=== PATIENT | female | born 1995 | race Caucasian/White ===

== ENCOUNTER 2018-03-24 03:46 | Emergency (ER) | payer OTHER ==
[2018-03-24 03:55] VITALS: TEMP 97.9
--- NOTE | 2018-03-24 05:08 | ED ---
Abdominal Pain HPI - General Chief Complaint: Abdominal Pain Stated Complaint: FLANK PAIN Time Seen by Provider: 03/24/18 04:25 Source: patient, EMS Mode of arrival: EMS - History of Present Illness Initial Comments: This patient is 23-year-old woman, stating that she is . She is here as transfer from [facility]. The patient had gone there for days ago for right flank pain. She states that she was told she had urinary tract infection, started on antibiotic and sent home. The pain did not resolve she had gone back to the hospital there tonight. When she was seen was felt that she needed to have ultrasound of the renal system. Patient is denying nausea or vomiting. No constipation or change in bowel movements. She has not noted a change in urine. No vaginal discharge or bleeding. MD Complaint: flank pain Onset/Timin -: days(s) Location: R flank Radiation: none Severity: moderate Quality: aching Consistency: constant Improves With: nothing Worsens With: other (Palpation) Treatments Prior to Arrival: other (Anabiotic) - Related Data Patient : Yes Number of weeks : 18 Home Medications Medication Instructions Recorded Confirmed Pnv,Calcium 72/Iron/Folic Acid 1 tab PO DAILY 03/01/15 03/24/18 [ Plus Tablet] Nitrofurantoin Monohyd/M-Cryst 100 mg PO Q12HR 03/24/18 03/24/18 [Macrobid] Allergies Allergy/AdvReac Type Severity Reaction Status Date / Time sulfamethoxazole Allergy Rash/Hives Verified 03/24/18 07:47 [From Bactrim] trimethoprim [From Bactrim] Allergy Rash/Hives Verified 03/24/18 07:47 amoxicillin AdvReac Rash/Hives Verified 03/24/18 07:47 bupropion [From Wellbutrin] AdvReac VIOLENT Verified 03/24/18 07:47 cephalexin [From Keflex] AdvReac Rash/Hives Verified 03/24/18 07:47 latex AdvReac Unknown Verified 03/24/18 07:47 Review of Systems ROS Statement: Those systems with pertinent positive or pertinent negative responses have been documented in the HPI. ROS Other: All systems not noted in ROS Statement are negative. Constitutional: Denies: fever, chills Respiratory: Denies: cough, dyspnea Cardiovascular: Denies: chest pain, palpitations, edema, syncope Gastrointestinal: Denies: abdominal pain, nausea, vomiting, diarrhea, constipation, melena, hematochezia Genitourinary: Denies: dysuria, hematuria, abnormal menses Musculoskeletal: Reports: as per HPI, back pain Skin: Denies: rash Neurological: Denies: headache, weakness, numbness Past Medical History Past Medical History: Cancer, Seizure Disorder Additional Past Medical History / Comment(s): States hx back pain. Hx ALL ( Acute Lymphoblastic Leukemia at 4yrs of age) History of Any Multi-Drug Resistant Organisms: None Reported Additional Past Surgical History / Comment(s): Port-a-cath insertion for chemo Past Anesthesia/Blood Transfusion Reactions: No Reported Reaction Past Psychological History: Anxiety, Depression Smoking Status: Never smoker Past Alcohol Use History: None Reported Past Drug Use History: None Reported - Past Family History Mother Family Medical History: Cancer General Exam General appearance: alert, in no apparent distress Head exam: Present: atraumatic, normocephalic Eye exam: Present: normal appearance. Absent: scleral icterus, conjunctival injection ENT exam: Present: normal oropharynx Respiratory exam: Present: normal lung sounds bilaterally. Absent: respiratory distress, wheezes, rales, rhonchi, stridor Cardiovascular Exam: Present: regular rate, normal rhythm, normal heart sounds. Absent: systolic murmur, diastolic murmur, rubs, gallop GI/Abdominal exam: Present: soft. Absent: distended, tenderness, guarding, rebound, mass Extremities exam: Present: normal inspection, normal capillary refill. Absent: pedal edema, calf tenderness Back exam: Present: normal inspection, tenderness, paraspinal tenderness. Absent: CVA tenderness (R), CVA tenderness (L), vertebral tenderness Neurological exam: Present: alert Skin exam: Present: warm, dry, intact, normal color. Absent: rash Course Vital Signs 03/24/18 03/24/18 03/24/18 03:48 05:00 06:00 Temperature 97.9 F Pulse Rate 59 L 65 68 Respiratory 19 16 16 Rate Blood Pressure 109/63 101/57 98/55 O2 Sat by Pulse 100 98 99 Oximetry Medical Decision Making - Lab Data Result diagrams: 03/24/18 07:12 03/24/18 07:12 Lab Results 03/24/18 03/24/18 Range/Units 07:12 07:12 WBC 9.3 (3.8-10.6) k/uL RBC 4.21 (3.80-5.40) m/uL Hgb 12.5 (11.4-16.0) gm/dL Hct 36.6 (34.0-46.0) % MCV 86.9 (80.0-100.0) fL MCH 29.6 (25.0-35.0) pg MCHC 34.1 (31.0-37.0) g/dL RDW 13.9 (11.5-15.5) % Plt Count 206 (150-450) k/uL Neutrophils % 62 % Lymphocytes % 27 % Monocytes % 5 % Eosinophils % 3 % Basophils % 0 % Neutrophils # 5.8 (1.3-7.7) k/uL Lymphocytes # 2.6 (1.0-4.8) k/uL Monocytes # 0.5 (0-1.0) k/uL Eosinophils # 0.2 (0-0.7) k/uL Basophils # 0.0 (0-0.2) k/uL Sodium 138 (137-145) mmol/L Potassium 3.5 (3.5-5.1) mmol/L Chloride 111 H (98-107) mmol/L Carbon Dioxide 21 L (22-30) mmol/L Anion Gap 6 mmol/L BUN 4 L (7-17) mg/dL Creatinine 0.48 L (0.52-1.04) mg/dL Est GFR (CKD-EPI)AfAm >90 (>60 ml/min/1.73 sqM) Est GFR (CKD-EPI)NonAf >90 (>60 ml/min/1.73 sqM) Glucose 79 (74-99) mg/dL Calcium 8.8 (8.4-10.2) mg/dL Disposition Clinical Impression: Renal colic on right side, Hydronephrosis Disposition: HOME SELF-CARE Condition: Fair Instructions: Renal Colic (ED) Is patient prescribed a controlled substance at d/c from ED?: No Referrals: Dar Borrero MD [STAFF PHYSICIAN] - 1-2 days
--- NOTE | 2018-03-24 05:43 | US ---
EXAMINATION TYPE: US kidneys/renal and bladder DATE OF EXAM: 03/24/2018 COMPARISON: NONE CLINICAL HISTORY: Pain. Right flank pain. Exam limitations due to body habitus and rib shadowing. EXAM MEASUREMENTS: Right Kidney: 12.0 x 3.5 x 4.0 cm Left Kidney: 12.2 x 4.8 x 3.6 cm Right Kidney: Moderate amount of hydronephrosis seen no definite stones visualized. Left Kidney: No hydronephrosis or masses seen Bladder: wnl Bilateral Jets seen: No No nephrolithiasis is seen. No masses are identified. The urinary bladd er is anechoic. Moderate amount of hydronephrosis seen right kidney. IMPRESSION: Left kidney appears normal. Right kidney shows mild to moderate hydronephrosis. No ureteral jets were evident during the exam in the urinary bladder.
[2018-03-24 06:19] VITALS: PULSE 68; RESP 16
[2018-03-24] MEDS ORDERED: SODIUM CHLORIDE 0.9% 500 ML 500 ML IV STA (06:45)
[2018-03-24] MEDS ORDERED: MORPHINE SULFATE 4 MG/ML SYRINGE IV STA (06:45)
[2018-03-24 07:21] LABS: Basophils % (A) 0 %; Eosinophils # (A) 0.2 k/uL (0-0.7); Eosinophils % (A) 3 %; HCT 36.6 % (34.0-46.0); HGB 12.5 gm/dL (11.4-16.0); Lymphocytes # (A) 2.6 k/uL (1.0-4.8); Lymphocytes % (A) 27 %; MCH 29.6 pg (25.0-35.0); MCHC 34.1 g/dL (31.0-37.0); MCV 86.9 fL (80.0-100.0); Mean Platelet Volume 7.3; Monocytes # (A) 0.5 k/uL (0-1.0); Monocytes % (A) 5 %; Neutrophils # (A) 5.8 k/uL (1.3-7.7); Neutrophils % (A) 62 %; Platelet Count 206 k/uL (150-450); RBC 4.21 m/uL (3.80-5.40); RDW 13.9 % (11.5-15.5); WBC 9.3 k/uL (3.8-10.6)
[2018-03-24 07:34] LABS: Anion Gap 6 mmol/L; Blood Urea Nitrogen 4 mg/dL (7-17); Calcium 8.8 mg/dL (8.4-10.2); Carbon Dioxide 21 mmol/L (22-30); Chloride 111 mmol/L (98-107); Glucose 79 mg/dL (74-99); Potassium 3.5 mmol/L (3.5-5.1); Sodium 138 mmol/L (137-145)
[2018-03-24] MEDS ORDERED: ACETAMINOPHEN TAB 325 MG TAB PO STA (07:58)
[2018-03-24 08:12] VITALS: BP 103/60
== END 2018-03-24 08:30 | disposition home or self-care (01) ==
LOC: EC 03:46
DX: O26.832 Pregnancy related renal disease, second trimester (principal); N13.30 Unspecified hydronephrosis; N23 Unspecified renal colic; Z88.2 Allergy status to sulfonamides; Z88.0 Allergy status to penicillin; Z88.8 Allergy status to other drugs, medicaments and biological substances; Z88.1 Allergy status to other antibiotic agents; Z91.040 Latex allergy status; Z85.6 Personal history of leukemia; Z53.20 Procedure and treatment not carried out because of patient's decision for unspecified reasons; Z3A.18 18 weeks gestation of pregnancy
CPT/HCPCS: 36415; 76770; 80048; 85025; 96360; 99284

== ENCOUNTER 2021-11-21 01:13 | Emergency (ER) | payer OTHER ==
[2021-11-21] MEDS ORDERED: levETIRAcetam 500 MG TAB PO STA (01:22)
[2021-11-21 01:23] VITALS: BP 108/74; PULSE 64; RESP 18; TEMP 97.7
[2021-11-21 02:10] LABS: Basophils # (A) 0.1 k/uL (0-0.2); Basophils % (A) 1 %; Eosinophils # (A) 0.4 k/uL (0-0.7); Eosinophils % (A) 3 %; HCT 40.1 % (34.0-46.0); HGB 13.5 gm/dL (11.4-16.0); Lymphocytes % (A) 26 %; MCH 30.1 pg (25.0-35.0); MCHC 33.6 g/dL (31.0-37.0); MCV 89.4 fL (80.0-100.0); Monocytes # (A) 0.6 k/uL (0-1.0); Monocytes % (A) 6 %; Neutrophils % (A) 62 %; Platelet Count 212 k/uL (150-450); RBC 4.48 m/uL (3.80-5.40); RDW 12.3 % (11.5-15.5); WBC 11.2 k/uL (3.8-10.6)
[2021-11-21 02:25] LABS: ALT 14 U/L (4-34); AST 21 U/L (14-36); African American GFR (CKD) >90 (>60 ml/min/1.73 sqM); Albumin 4.1 g/dL (3.5-5.0); Alkaline Phosphatase 66 U/L (38-126); Anion Gap 8 mmol/L; Blood Urea Nitrogen 9 mg/dL (7-17); Calcium 8.7 mg/dL (8.4-10.2); Carbon Dioxide 19 mmol/L (22-30); Chloride 109 mmol/L (98-107); Glucose 96 mg/dL (74-99); Magnesium 1.9 mg/dL (1.6-2.3); Non-African American GFR(CKD) >90 (>60 ml/min/1.73 sqM); Potassium 3.8 mmol/L (3.5-5.1); Sodium 136 mmol/L (137-145); Total Bilirubin 0.3 mg/dL (0.2-1.3); Total Protein 6.8 g/dL (6.3-8.2)
[2021-11-21 03:06] LABS: Amphetamine Screen,Urine Not Detected (NotDetected); Barbiturate Screen,Urine Not Detected (NotDetected); Benzodiazepines Screen,Urine Not Detected (NotDetected); Cocaine Screen,Urine Not Detected (NotDetected); Methadone Screen, Urine Not Detected (NotDetected); Opiate Screen,Urine Not Detected (NotDetected); Oxycodone Screen, Urine Not Detected (NotDetected); Phencyclidine Screen,Urine Not Detected (NotDetected); Tricyclic Antidepressant,Urine Not Detected (NotDetected); Urn Cannabinoid Scrn Not Detected (NotDetected)
--- NOTE | 2021-11-21 04:16 | ED ---
Seizure HPI - General Chief Complaint: Seizure Stated Complaint: Seizure Time Seen by Provider: 11/21/21 01:15 Source: patient, EMS Mode of arrival: EMS Limitations: no limitations - History of Present Illness MD Complaint: seizure -: minutes(s) Description of Episode: loss of consciousness, tonic-clonic movement -: second(s) Witnessed: yes - by bystander Trauma: No Seizure History: known seizure disorder Place: home Associated Symptoms: denies other symptoms - Related Data Home Medications Medication Instructions Recorded Confirmed Pnv,Calcium 72/Iron/Folic Acid 1 tab PO DAILY 03/01/15 03/24/18 [ Plus Tablet] Nitrofurantoin Monohyd/M-Cryst 100 mg PO Q12HR 03/24/18 03/24/18 [Macrobid] Allergies Allergy/AdvReac Type Severity Reaction Status Date / Time sulfamethoxazole Allergy Rash/Hives Verified 03/24/18 07:47 [From Bactrim] trimethoprim [From Bactrim] Allergy Rash/Hives Verified 03/24/18 07:47 amoxicillin AdvReac Rash/Hives Verified 03/24/18 07:47 bupropion [From Wellbutrin] AdvReac VIOLENT Verified 03/24/18 07:47 cephalexin [From Keflex] AdvReac Rash/Hives Verified 03/24/18 07:47 latex AdvReac Unknown Verified 03/24/18 07:47 Review of Systems ROS Statement: Those systems with pertinent positive or pertinent negative responses have been documented in the HPI. ROS Other: All systems not noted in ROS Statement are negative. Constitutional: Denies: fever Respiratory: Denies: cough, dyspnea Cardiovascular: Denies: chest pain, palpitations Gastrointestinal: Denies: abdominal pain, vomiting Genitourinary: Denies: dysuria, hematuria Musculoskeletal: Denies: back pain Skin: Denies: rash Neurological: Denies: headache, weakness, numbness Past Medical History Past Medical History: Cancer, Seizure Disorder Additional Past Medical History / Comment(s): States hx back pain. Hx ALL (Acute Lymphoblastic Leukemia at 4yrs of age) History of Any Multi-Drug Resistant Organisms: None Reported Additional Past Surgical History / Comment(s): Port-a-cath insertion for chemo Past Anesthesia/Blood Transfusion Reactions: No Reported Reaction Past Psychological History: Anxiety, Depression Past Alcohol Use History: None Reported Past Drug Use History: None Reported - Past Family History Mother Family Medical History: Cancer General Exam Limitations: no limitations General appearance: alert, in no apparent distress Head exam: Present: atraumatic, normocephalic Eye exam: Present: normal appearance. Absent: scleral icterus, conjunctival injection Neck exam: Present: normal inspection Respiratory exam: Present: normal lung sounds bilaterally. Absent: respiratory distress, wheezes, rales, rhonchi, stridor Cardiovascular Exam: Present: regular rate, normal rhythm, normal heart sounds. Absent: systolic murmur, diastolic murmur, rubs, gallop GI/Abdominal exam: Present: soft. Absent: distended, tenderness, guarding, rebound, rigid, mass Extremities exam: Present: normal inspection, normal capillary refill. Absent: pedal edema, calf tenderness Back exam: Present: normal inspection. Absent: CVA tenderness (R), CVA ten derness (L) Neurological exam: Present: alert, oriented X3, CN II-XII intact. Absent: motor sensory deficit Skin exam: Present: warm, dry, intact, normal color. Absent: rash Course Vital Signs 11/21/21 01:17 Temperature 97.7 F Pulse Rate 64 Respiratory 18 Rate Blood Pressure 108/74 O2 Sat by Pulse 100 Oximetry Medical Decision Making - Medical Decision Making Patient is 26-year-old woman here after generalized tonic-clonic seizure. She had just seen her neurologist and they were going to increase her dose of Keppra. Patient has had some medical noncompliance. She is back at her baseline and would like to go home. Discussed following the medical regimen and she is given dose of Keppra here. - Lab Data Result diagrams: 11/21/21 01:51 11/21/21 01:51 Lab Results 11/21/21 11/21/21 11/21/21 Range/Units 01:51 01:51 02:03 WBC 11.2 H (3.8-10.6) k/uL RBC 4.48 (3.80-5.40) m/uL Hgb 13.5 (11.4-16.0) gm/dL Hct 40.1 (34.0-46.0) % MCV 89.4 (80.0-100.0) fL MCH 30.1 (25.0-35.0) pg MCHC 33.6 (31.0-37.0) g/dL RDW 12.3 (11.5-15.5) % Plt Count 212 (150-450) k/uL MPV 8.0 Neutrophils % 62 % Lymphocytes % 26 % Monocytes % 6 % Eosinophils % 3 % Basophils % 1 % Neutrophils # 7.0 (1.3-7.7) k/uL Lymphocytes # 3.0 (1.0-4.8) k/uL Monocytes # 0.6 (0-1.0) k/uL Eosinophils # 0.4 (0-0.7) k/uL Basophils # 0.1 (0-0.2) k/uL Sodium 136 L (137-145) mmol/L Potassium 3.8 (3.5-5.1) mmol/L Chloride 109 H (98-107) mmol/L Carbon Dioxide 19 L (22-30) mmol/L Anion Gap 8 mmol/L BUN 9 (7-17) mg/dL Creatinine 0.64 (0.52-1.04) mg/dL Est GFR (CKD-EPI)AfAm >90 (>60 ml/min/1.73 sqM) Est GFR (CKD-EPI)NonAf >90 (>60 ml/min/1.73 sqM) Glucose 96 (74-99) mg/dL Calcium 8.7 (8.4-10.2) mg/dL Magnesium 1.9 (1.6-2.3) mg/dL Total Bilirubin 0.3 (0.2-1.3) mg/dL AST 21 (14-36) U/L ALT 14 (4-34) U/L Alkaline Phosphatase 66 (38-126) U/L Total Protein 6.8 (6.3-8.2) g/dL Albumin 4.1 (3.5-5.0) g/dL Urine HCG, Qual (Not Detectd) Urine Opiates Screen Not Detected (NotDetected) Ur Oxycodone Screen Not Detected (NotDetected) Urine Methadone Screen Not Detected (NotDetected) Ur Propoxyphene Screen Not Detected (NotDetected) Ur Barbiturates Screen Not Detected (NotDetected) U Tricyclic Antidepress Not Detected (NotDetected) Ur Phencyclidine Scrn Not Detected (NotDetected) Ur Amphetamines Screen Not Detected (NotDetected) U Methamphetamines Scrn Not Detected (NotDetected) U Benzodiazepines Scrn Not Detected (NotDetected) Urine Cocaine Screen Not Detected (NotDetected) U Marijuana (THC) Screen Not Detected (NotDetected) 11/21/21 Range/Units 02:03 WBC (3.8-10.6) k/uL RBC (3.80-5.40) m/uL Hgb (11.4-16.0) gm/dL Hct (34.0-46.0) % MCV (80.0-100.0) fL MCH (25.0-35.0) pg MCHC (31.0-37.0) g/dL RDW (11.5-15.5) % Plt Count (150-450) k/uL MPV Neutrophils % % Lymphocytes % % Monocytes % % Eosinophils % % Basophils % % Neutrophils # (1.3-7.7) k/uL Lymphocytes # (1.0-4.8) k/uL Monocytes # (0-1.0) k/uL Eosinophils # (0-0.7) k/uL Basophils # (0-0.2) k/uL Sodium (137-145) mmol/L Potassium (3.5-5.1) mmol/L Chloride (98-107) mmol/L Carbon Dioxide (22-30) mmol/L Anion Gap mmol/L BUN (7-17) mg/dL Creatinine (0.52-1.04) mg/dL Est GFR (CKD-EPI)AfAm (>60 ml/min/1.73 sqM) Est GFR (CKD-EPI)NonAf (>60 ml/min/1.73 sqM) Glucose (74-99) mg/dL Calcium (8.4-10.2) mg/dL Magnesium (1.6-2.3) mg/dL Total Bilirubin (0.2-1.3) mg/dL AST (14-36) U/L ALT (4-34) U/L Alkaline Phosphatase (38-126) U/L Total Protein (6.3-8.2) g/dL Albumin (3.5-5.0) g/dL Urine HCG, Qual Not Detected (Not Detectd) Urine Opiates Screen (NotDetected) Ur Oxycodone Screen (NotDetected) Urine Methadone Screen (NotDetected) Ur Propoxyphene Screen (NotDetected) Ur Barbiturates Screen (NotDetected) U Tricyclic Antidepress (NotDetected) Ur Phencyclidine Scrn (NotDetected) Ur Amphetamines Screen (NotDetected) U Methamphetamines Scrn (NotDetected) U Benzodiazepines Scrn (NotDetected) Urine Cocaine Screen (NotDetected) U Marijuana (THC) Screen (NotDetected) Disposition Clinical Impression: Generalized seizure Disposition: HOME SELF-CARE Condition: Good Instructions (If sedation given, give patient instructions): Seizure/Epilepsy Discharge Instructions & Follow-Up Is patient prescribed a controlled substance at d/c from ED?: No Referrals: Carl Rivers MD [Primary Care Provider] - 1-2 days Zain Nava MD [STAFF PHYSICIAN] - 1-2 days
== END 2021-11-21 05:29 | disposition home or self-care (01) ==
LOC: EC 01:13
DX: R56.9 Unspecified convulsions (principal); Z88.2 Allergy status to sulfonamides; Z88.8 Allergy status to other drugs, medicaments and biological substances; Z88.0 Allergy status to penicillin
CPT/HCPCS: 36415; 80053; 80306; 81025; 83735; 85025; 93005; 99285

== ENCOUNTER 2021-12-03 21:07 | Inpatient (IN) | payer OTHER ==
[2021-12-03] MEDS ORDERED: NALOXONE 0.4 MG/ML 1 ML VIAL IV PRN (21:38)
[2021-12-03] MEDS ORDERED: ONDANSETRON 4 MG/2 ML VIAL IVP PRN (21:44)
[2021-12-03] MEDS ORDERED: SODIUM CHLORIDE 0.9% 1,000 ML IV STA ×2 (21:44)
--- NOTE | 2021-12-03 21:51 | ED ---
Seizure HPI - General Chief Complaint: Seizure Stated Complaint: seizures Time Seen by Provider: 12/03/21 21:21 Source: patient, EMS, RN notes reviewed, old records reviewed Mode of arrival: EMS Limitations: no limitations - History of Present Illness Initial Comments: This is a 26-year-old female to the emergency department for evaluation patient presents today for evaluation regards to recurrent seizure status epilepticus 14+ seizures today with history of greater than 100 seizures per day on Her with no resolution. Patient will be admitted for recurrent neurological evaluation MD Complaint: seizure, shaking -: minutes(s) Description of Episode: loss of consciousness, tonic-clonic movement, post-event confusion -: second(s) Witnessed: yes - by bystander Trauma: Yes Seizure History: known seizure disorder, compliant with medication Place: home Possible Precipitating Event: none Associated Symptoms: denies other symptoms Treatments Prior to Arrival: none - Related Data Home Medications Medication Instructions Recorded Confirmed QUEtiapine [SEROquel] 200 mg PO HS 12/03/21 12/03/21 levETIRAcetam [Keppra] 1,000 mg PO Q12HR 12/03/21 12/03/21 Allergies Allergy/AdvReac Type Severity Reaction Status Date / Time sulfamethoxazole Allergy Rash/Hives Verified 12/03/21 22:24 [From Bactrim] trimethoprim [From Bactrim] Allergy Rash/Hives Verified 12/03/21 22:24 amoxicillin AdvReac Rash/Hives Verified 12/03/21 22:24 bupropion [From Wellbutrin] AdvReac VIOLENT Verified 12/03/21 22:24 cephalexin [From Keflex] AdvReac Rash/Hives Verified 12/03/21 22:24 latex AdvReac Unknown Verified 12/03/21 22:24 Review of Systems ROS Statement: Those systems with pertinent positive or pertinent negative responses have been documented in the HPI. ROS Other: All systems not noted in ROS Statement are negative. Past Medical History Past Medical History: Cancer, Seizure Disorder Additional Past Medical History / Comment(s): States hx back pain. Hx ALL (Acute Lymphoblastic Leukemia at 4yrs of age) History of Any Multi-Drug Resistant Organisms: None Reported Past Surgical History: Section, Cholecystectomy, Tubal Ligation Additional Past Surgical History / Comment(s): Port-a-cath insertion for chemo Past Anesthesia/Blood Transfusion Reactions: No Reported Reaction Past Psychological History: Anxiety, Depression Smoking Status: Never smoker Past Alcohol Use History: None Reported Past Drug Use History: None Reported - Past Family History Mother Family Medical History: Cancer General Exam Limitations: no limitations General appearance: alert, in no apparent distress Head exam: Present: atraumatic, normocephalic, normal inspection Eye exam: Present: normal appearance, PERRL, EOMI. Absent: scleral icterus, conjunctival injection, periorbital swelling ENT exam: Present: normal exam, mucous membranes moist Neck exam: Present: normal inspection. Absent: tenderness, meningismus, lymphadenopathy Respiratory exam: Present: normal lung sounds bilaterally. Absent: respiratory distress, wheezes, rales, rhonchi, stridor Cardiovascular Exam: Present: regular rate, normal rhythm, normal heart sounds. Absent: systolic murmur, diastolic murmur, rubs, gallop, clicks GI/Abdominal exam: Present: soft, normal bowel sounds. Absent: distended, tenderness, guarding, rebound, rigid Extremities exam: Present: normal inspection, full ROM, normal capillary refill. Absent: tenderness, pedal edema, joint swelling, calf tenderness Back exam: Present: normal inspection Neurological exam: Present: alert, oriented X3, CN II-XII intact Psychiatric exam: Present: normal affect, normal mood Skin exam: Present: warm, dry, intact, normal color. Absent: rash Course Vital Signs 12/03/21 21:18 Temperature 98.4 F Pulse Rate 97 Respiratory 16 Rate Blood Pressure 105/65 O2 Sat by Pulse 97 Oximetry - Reevaluation(s) Reevaluation #1: 12/03/21 23:02 Medical record is reviewed Reevaluation #2: 12/03/21 23:02 Patient informed of results and questions answered Reevaluation #3: 12/03/21 23:02 A she has not had recurrent seizure here in the emergency department - Consultations Consultation #1: Spoke with [facility] who agree to admit this patient Medical Decision Making - Medical Decision Making 26 female with status epilepticus recent history of multiple seizures per day her story upper to 14 today. Patient be admitted for status epilepticus evaluation by neurology, recent history of multiple admissions for same - Lab Data Result diagrams: 12/03/21 22:40 - EKG Data -: EKG Interpreted by Me (EKG sinus rhythm 81 VA 144 QRS 82 QTC 397) Disposition Clinical Impression: Generalized seizure, Intractable seizure disorder, Status epilepticus Disposition: ADMITTED IP TO THIS HOSP Condition: Fair Is patient prescribed a controlled substance at d/c from ED?: No
[2021-12-03] MEDS ORDERED: levETIRAcetam IV 1,000 MG in SALINE 1 100ML.BAG IVPB ONE (22:00)
[2021-12-03 22:50] LABS: Basophils # (A) 0.1 k/uL (0-0.2); Basophils % (A) 2 %; Eosinophils # (A) 0.6 k/uL (0-0.7); Eosinophils % (A) 6 %; HCT 42.7 % (34.0-46.0); HGB 14.8 gm/dL (11.4-16.0); Lymphocytes # (A) 2.6 k/uL (1.0-4.8); Lymphocytes % (A) 26 %; MCH 30.9 pg (25.0-35.0); MCHC 34.7 g/dL (31.0-37.0); MCV 89.1 fL (80.0-100.0); Mean Platelet Volume 7.6; Monocytes # (A) 0.7 k/uL (0-1.0); Monocytes % (A) 7 %; Neutrophils # (A) 5.9 k/uL (1.3-7.7); Neutrophils % (A) 59 %; Platelet Count 233 k/uL (150-450); RBC 4.79 m/uL (3.80-5.40); RDW 12.2 % (11.5-15.5); WBC 9.9 k/uL (3.8-10.6)
[2021-12-03 22:59] LABS: ALT 29 U/L (4-34); AST 35 U/L (14-36); Acetaminophen <10.0 ug/mL; African American GFR (CKD) >90 (>60 ml/min/1.73 sqM); Albumin 4.3 g/dL (3.5-5.0); Alcohol <10 mg/dL; Alkaline Phosphatase 55 U/L (38-126); Anion Gap 4 mmol/L; Blood Urea Nitrogen 11 mg/dL (7-17); Calcium 9.1 mg/dL (8.4-10.2); Carbon Dioxide 29 mmol/L (22-30); Chloride 105 mmol/L (98-107); Glucose 106 mg/dL (74-99); Magnesium 1.9 mg/dL (1.6-2.3); Non-African American GFR(CKD) >90 (>60 ml/min/1.73 sqM); Potassium 4.4 mmol/L (3.5-5.1); Salicylate <1.0 mg/dL; Sodium 138 mmol/L (137-145); Total Bilirubin 0.3 mg/dL (0.2-1.3); Total Protein 7.3 g/dL (6.3-8.2)
[2021-12-03 23:09] LABS: Amphetamine Screen,Urine Not Detected (NotDetected); Barbiturate Screen,Urine Not Detected (NotDetected); Benzodiazepines Screen,Urine Detected (NotDetected); Cocaine Screen,Urine Not Detected (NotDetected); Methadone Screen, Urine Not Detected (NotDetected); Opiate Screen,Urine Not Detected (NotDetected); Oxycodone Screen, Urine Not Detected (NotDetected); Phencyclidine Screen,Urine Not Detected (NotDetected); Tricyclic Antidepressant,Urine Not Detected (NotDetected); Urn Cannabinoid Scrn Not Detected (NotDetected)
[2021-12-04] MEDS: SODIUM CHLORIDE 0.9% 1,000 ML IV SCH ×4 (00:10→21:04)
[2021-12-04] MEDS ORDERED: QUEtiapine 200 MG TAB PO ONE (03:00)
[2021-12-04 07:11] LABS: Basophils # (A) 0.1 k/uL (0-0.2); Basophils % (A) 2 %; Eosinophils # (A) 0.5 k/uL (0-0.7); Eosinophils % (A) 6 %; HCT 41.5 % (34.0-46.0); HGB 13.8 gm/dL (11.4-16.0); Lymphocytes % (A) 36 %; MCH 29.8 pg (25.0-35.0); MCHC 33.3 g/dL (31.0-37.0); MCV 89.5 fL (80.0-100.0); Mean Platelet Volume 7.9; Monocytes # (A) 0.5 k/uL (0-1.0); Monocytes % (A) 6 %; Neutrophils # (A) 4.1 k/uL (1.3-7.7); Neutrophils % (A) 48 %; Platelet Count 197 k/uL (150-450); RBC 4.64 m/uL (3.80-5.40); RDW 12.3 % (11.5-15.5); WBC 8.4 k/uL (3.8-10.6)
[2021-12-04 07:32] LABS: Carbon Dioxide 26 mmol/L (22-30)
[2021-12-04 07:33] LABS: African American GFR (CKD) >90 (>60 ml/min/1.73 sqM); Anion Gap 6 mmol/L; Blood Urea Nitrogen 9 mg/dL (7-17); Calcium 8.5 mg/dL (8.4-10.2); Chloride 107 mmol/L (98-107); Glucose 88 mg/dL (74-99); Non-African American GFR(CKD) >90 (>60 ml/min/1.73 sqM); Potassium 4.2 mmol/L (3.5-5.1); Sodium 139 mmol/L (137-145)
[2021-12-04] MEDS ORDERED: PANTOPRAZOLE 40 MG/10 ML VIAL IV SCH (09:00)
--- NOTE | 2021-12-04 09:16 | P.CNNES ---
History of Present Illness Consult date: 12/04/21 Requesting physician: Raghu Lyn Reason for Consult: seizure History of Present Illness: This is a 26-year-old woman with history of seizures who presented to our facility because of recurrent seizures. Patient stated that the she has been having seizures for the last 1 year but continues to have recurrent seizures and they're becoming more frequent. She stated she is to have it at a seizure once every couple weeks now she is having frequent seizure once every day or every other day and she notified the ED and she had 14 seizures yesterday and had greater than 100 seizures per day. She stated that she is on Keppra at thousand milligrams every 12 hours and she's been compliant taking her medication. She does not recall her episodes. She does not have any auras. She denies any urinary or bowel incontinence. Sometimes she has a tongue bite and she feels as she bites the side of the cheek. Patient was just recently discharged from [facility] but can do to have seizure so she wanted to be addressed. She denies of ALCOHOL use, tobacco use or any illicit drug use. She notified me that she's going under stress. She denies of any suicidal or homicidal thoughts or plans. She tried Depakote and Dilantin in the past but had side effects of Depakote and Dilantin was not not effective. She is following up with Dr. Dominique's PA. Patient stated that she had MRI of the brai n and was told was unremarkable by her neurology team. She also had a 3 hour EEG and was told was normal. She stated that she is in the process of possibly pursuing VNG. Some of the workup in our facility during this hospital visit consisted of: Patient labs were reviewed and they seemed unremarkable. Her urine drug screen the benzoyl is positive otherwise rest is not detected. The serum alcohol was less than 10. Acetaminophen is less than 10 T is less than 1.0. According to the nurse she had a recent CT of the head at the outside hospital. Review of Systems Review of system: The 12 point system was reviewed and apparent positive and negative per HPI. Past Medical History Past Medical History: Cancer, Seizure Disorder Additional Past Medical History / Comment(s): States hx back pain. Hx ALL (Acute Lymphoblastic Leukemia at 4yrs of age) History of Any Multi-Drug Resistant Organisms: None Reported Past Surgical History: Section, Cholecystectomy, Tubal Ligation Additional Past Surgical History / Comment(s): Port-a-cath insertion for chemo Past Anesthesia/Blood Transfusion Reactions: No Reported Reaction Past Psychological History: Anxiety, Depression Smoking Status: Never smoker Past Alcohol Use History: None Reported Past Drug Use History: None Reported - Past Family History Mother Family Medical History: Cancer Medications and Allergies Home Medications Medication Instructions Recorded Confirmed Type QUEtiapine [SEROquel] 200 mg PO HS 12/03/21 12/03/21 History levETIRAcetam [Keppra] 1,000 mg PO Q12HR 12/03/21 12/03/21 History Allergies Allergy/AdvReac Type Severity Reaction Status Date / Time sulfamethoxazole Allergy Rash/Hives Verified 12/03/21 22:24 [From Bactrim] trimethoprim [From Bactrim] Allergy Rash/Hives Verified 12/03/21 22:24 amoxicillin AdvReac Rash/Hives Verified 12/03/21 22:24 bupropion [From Wellbutrin] AdvReac VIOLENT Verified 12/03/21 22:24 cephalexin [From Keflex] AdvReac Rash/Hives Verified 12/03/21 22:24 latex AdvReac Unknown Verified 12/03/21 22:24 Physical Examination - Vital Signs Vital Signs: Vital Signs Temp Pulse Pulse Resp BP BP Pulse Ox 12/04/21 05:44 97.7 F 78 15 92/59 98 12/04/21 02:19 97.8 F 78 16 106/72 98 12/03/21 23:00 61 181 H 97/61 98 12/03/21 22:45 98.0 F 68 16 123/82 100 12/03/21 21:18 98.4 F 97 16 105/65 97 Intake and Output 12/03/21 12/04/21 12/04/21 22:59 06:59 14:59 Intake Total 1080 118 Balance 1080 118 Intake: Oral 1080 118 Other: Weight 80.739 kg GENERAL: The patient is lying in bed and is not in acute distress. CHEST: The heart rate is regular rate rhythm. No murmurs to auscultation. LUNG: Clear to auscultation bilaterally no wheezing noted throughout. Not labored breathing. ABDOMEN/GI: Bowel sounds present in all 4 quadrants. No tenderness to palpation throughout. NEUROLOGICAL: Higher mental function: The patient is awake, alert, oriented to self, place and time. Patient is following commands. No aphasia and no neglect. Cranial nerves: The pupils are round, equal and reactive to light and accom modation. Visual jackson are full to confrontation throughout. Extraocular movement is intact no nystagmus is noted. Facial sensation is normal to touch throughout. The facial strength is normal throughout. Hearing is normal bilaterally to hand rub. Tongue is midline and moved [id number] without any difficulty. No dysarthria is noted. Shoulder shrug is normal bilaterally. Motor: The strength is 5 over 5 throughout. Normal tone and bulk. Cerebellum: Normal finger to nose bilaterally. Sensation: Sensation is normal to touch throughout. Reflexes (right/left): 2+ throughout. Plantars are downgoing bilaterally. Results - Laboratory Findings CBC and BMP: 12/04/21 06:44 12/04/21 06:44 Abnormal Lab Findings: Abnormal Labs 12/03/21 12/03/21 22:40 22:40 Glucose 106 H U Benzodiazepines Scrn Detected H Assessment and Plan Assessment: Seizure-like activity and is reporting at least 14 seizure in the day yesterday. Patient is not in status epilepticus and her labs were unremarkable which patient with numerous seizure, you would expect some reactive labs. I feel the patient's seizure-like episodes seem more pseudoseizures. Cannot exclude true epileptic in nature. Seizure-like activity for last 1 year. She had MRI and had a 3 hour EEG by her outpatient neurologist was told was normal Plan: I ordered a CT of the head. I ordered a routine EEG. Continue her home dose of Keppra 1 g twice a day. I started her on Vimpat 50mg bid in case there is are true epileptic in nature. Consulted psychiatry team but spoke with them and they stated outpatient psychiatry management. Therefore cancelled consult. If that CT of the head and the routine EEG are normal then patient is cleared for discharge. I highly recommend an epilepsy monitoring unit as an outpatient to capture these episodes. Patient was notified because of her seizure-like activities to avoid driving for 6 month, avoid heights, avoid using heavy machinery and avoid swimming unassisted. Recommend epilepsy monitoring unit as outpatient to capture these episodes and detect whether all her episodes are epileptic in nature vs nonepileptiic vs combination of both. Patient to follow-up with her neurologist (Dr. Dominique's team) within 1-2 weeks. Plan discussed with the patient's nurse and primary team. Thank you for the consultation. I was updated by the nurse, that patient had further events and they seems more psychogenic. She is having low blood pressure. I loaded the patient with Vimpat 100mg daily. Zain Nava M.D. Neuro-hospitalist Time with Patient: Greater than 30
[2021-12-04] MEDS ORDERED: levETIRAcetam IV 1,000 MG in SALINE 1 100ML.BAG IVPB SCH (10:00)
--- NOTE | 2021-12-04 10:17 | CT ---
EXAMINATION TYPE: CT brain wo con DATE OF EXAM: 12/04/2021 COMPARISON: None HISTORY: 26-year-old female seizure TECHNIQUE: Examination was done in axial plane without intravenous contrast. Coronal and sagittal r econstructions performed. CT DLP: 1090.4 mGycm Automated exposure control for dose reduction was used. FINDINGS: There is no evidence of acute intracranial hemorrhage, acute ischemic changes, mass, mass-effect, or extra-axial fluid collection. There is no effacement of cerebral sulci or basal subarachnoid cister ns. There is no hydrocephalus. There is no midline shift. Foley-white matter distinction is preserv ed. Slightly smaller size to the right lateral ventricle likely congenital variation Scattered mild mucosal thickening ethmoid air cells and maxillary sinuses. There is a 1.8 cm polyp or mucosal retention cyst posteriorly in the left maxillary sinus. Mastoid air cells well pneumatized. Orbits and globes are intact. Leftward nasal septal deviation. IMPRESSION: No acute intracranial abnormality seen. Mild chronic maxillary and ethmoid sinus disease.
--- NOTE | 2021-12-04 15:28 | EEG ---
ELECTROENCEPHALOGRAM REPORT DATE OF SERVICE: 12/03/2021. CLINICAL HISTORY: This is a 26-year-old woman with history of seizure who reports that she continues to have seizure-like activity. The video EEG is obtained to evaluate for seizure epileptiform activity. RELEVANT MEDICATION: Keppra. EEG TYPE: A routine 21 channel EEG is performed with video using the 10/20 electrode placement system. DESCRIPTION: Wakefulness and drowsiness are obtained. During awake state, the posterior- dominant rhythm consists of low to moderate voltage of 9 hertz activity. There is no physiological stage 2 sleep architecture. There is no focal slowing. Interictal and ictal is none. ACTIVATION PROCEDURE: Photic stimulation did not evoke a posterior driving response. There is no abnormality during the photic stimulation. Hyperventilation is not performed. CLINICAL INTERPRETATION: This is a normal routine EEG. There is no focal slowing, epileptiform discharge or seizure on the EEG. Clinical correlation is recommended. SAV / TATIANA: [id number] / MTDD
--- NOTE | 2021-12-04 17:15 | P.HPIM ---
History of Present Illness H&P Date: 12/04/21 Chief Complaint: Recurrent seizures This is a 26-year-old patient, follows with Dr. Rivers. Patient first had a seizure when she was . Subsequently she's had recurrent seizures. Patient follows with neurology spine locally in town with Dr. Aquino team. On Keppra thousand milligrams twice a day. In the process of getting vagal nerve stimulator. Patient is brought to the ER following recurrent seizures at least about over 10. Described as tonic-clonic. When I saw the patient this morning patient lethargic but able to answer questions. No fever no chills. Neurology was consulted. Neuro checks. Patient has been taking her medications. Review of systems: GEN.: Tired EYES: None HEENT: None NECK: None RESPIRATORY: None CARDIOVASCULAR: None GASTROINTESTINAL: None GENITOURINARY: None MUSCULOSKELETAL: None LYMPHATICS: None HEMATOLOGICAL: None PSYCHIATRY: None NEUROLOGICAL: As above Past medical history to include: Seizure disorder, acute lymphoblastic leukemia at age of 4 years. Anxiety depression. Social history: Not employed. Lives with her uncle and aunt. No alcohol no smoking or recreational drugs. Family history: Cancer Physical examination: VITAL SIGNS: 98.4, 97, 16, 105/65, 97% room air GENERAL: BMI 30.6, laying in bed, lethargic but able to answer questions. EYES: Pupils equal. Conjunctiva normal. HEENT: External appearance of nose and ears normal, oral cavity grossly normal. NECK: JVD not raised; masses not palpable. HEART: First and second heart sounds are normal; no edema. LUNGS: Respiratory rate normal; clear to auscultation. ABDOMEN: Soft, nontender, liver spleen not palpable, no masses palpable. PSYCH: [Tired and lethargic but able to answer questions l. MUSCULOSKELETAL:No Clubbing/cyanosis;muscles-grossly intact NEUROLOGICAL: Cranial nerves grossly intact; no facial asymmetry, power and sensation grossly intact. LYMPHATICS: No lymph nodes palpable in the axilla and neck INVESTIGATIONS, reviewed in the clinical context: White count 8.4 hemoglobin 13.8 platelets 197 potassium 4.2 creatinine 0.66 Urine drug screen positive for: Benzodiazepines EKG tracing personally reviewed by me: Normal sinus rhythm Computed tomography scan of the brain: Unremarkable Assessment and plan: -Recurrent seizures. Patient does follow with neurology spine locally in town. Awaiting vagal nerve stimulator. Neuro checks. EEG. Neurology consulted. -Obesity BMI 30.6 Weight loss measures -Depression, anxiety Seroquel 200 mg daily at bedtime Neuro Checks. EEG. Neurology consultation.. Continue home medications. Patient's currently postictal. But improving. Past Medical History Past Medical History: Cancer, Seizure Disorder Additional Past Medical History / Comment(s): States hx back pain. Hx ALL (Acute Lymphoblastic Leukemia at 4yrs of age) History of Any Multi-Drug Resistant Organisms: None Reported Past Surgical History: Section, Cholecystectomy, Tubal Ligation Additional Past Surgical History / Comment(s): Port-a-cath insertion for chemo Past Anesthesia/Blood Transfusion Reactions: No Reported Reaction Past Psychological History: Anxiety, Depression Smoking Status: Never smoker Past Alcohol Use History: None Reported Past Drug Use History: None Reported - Past Family History Mother Family Medical History: Cancer Medications and Allergies Home Medications Medication Instructions Recorded Confirmed Type QUEtiapine [SEROquel] 200 mg PO HS 12/03/21 12/03/21 History levETIRAcetam [Keppra] 1,000 mg PO Q12HR 12/03/21 12/03/21 History Allergies Allergy/AdvReac Type Severity Reaction Status Date / Time sulfamethoxazole Allergy Rash/Hives Verified 12/03/21 22:24 [From Bactrim] trimethoprim [From Bactrim] Allergy Rash/Hives Verified 12/03/21 22:24 amoxicillin AdvReac Rash/Hives Verified 12/03/21 22:24 bupropion [From Wellbutrin] AdvReac VIOLENT Verified 12/03/21 22:24 cephalexin [From Keflex] AdvReac Rash/Hives Verified 12/03/21 22:24 latex AdvReac Unknown Verified 12/03/21 22:24 Physical Exam Vitals: Vital Signs Temp Pulse Pulse Resp BP BP Pulse Ox 12/04/21 05:44 97.7 F 78 15 92/59 98 12/04/21 02:19 97.8 F 78 16 106/72 98 12/03/21 23:00 61 181 H 97/61 98 12/03/21 22:45 98.0 F 68 16 123/82 100 12/03/21 21:18 98.4 F 97 16 105/65 97 Intake and Output 12/03/21 12/04/21 12/04/21 22:59 06:59 14:59 Intake Total 1080 118 Balance 1080 118 Intake: Oral 1080 118 Other: Weight 80.739 kg Results CBC & Chem 7: 12/04/21 06:44 12/04/21 06:44 Labs: Abnormal Lab Results - Last 24 Hours (Table) 12/03/21 12/03/21 Range/Units 22:40 22:40 Glucose 106 H (74-99) mg/dL U Benzodiazepines Scrn Detected H (NotDetected) Thrombosis Risk Factor Assmnt - Choose All That Apply Any of the Below Risk Factors Present?: No
[2021-12-04] MEDS ORDERED: LACOSAMIDE IV 100 MG in SODIUM CHLORIDE 0.9% 50 ML IVPB STA (17:56)
[2021-12-04] MEDS ORDERED: QUEtiapine 200 MG TAB PO SCH (21:00)
[2021-12-04] MEDS: LACOSAMIDE 50 MG TABLET PO SCH (21:02)
[2021-12-04] MEDS: levETIRAcetam 500 MG TAB PO SCH (21:03)
[2021-12-05 03:22] VITALS: RESP 16
[2021-12-05] MEDS: levETIRAcetam 500 MG TAB PO SCH (08:10)
[2021-12-05] MEDS: SODIUM CHLORIDE 0.9% 1,000 ML IV SCH (08:10)
[2021-12-05] MEDS: LACOSAMIDE 50 MG TABLET PO SCH (08:10)
--- NOTE | 2021-12-05 08:27 | P.PN ---
Subjective Progress Note Date: 12/05/21 The patient is seen at bedside and she feels today she is better than yesterday. Yesterday her blood pressure was as low as 76/45 and had episode of confusion. Today she's feeling as stated earlier better and I started her on Vimpat in addition to her home Keppra. She notified me that she had the MRI at her neurologist facility in August 2021 and it was without gadolinium and that was reported as normal Objective - Vital Signs Vital signs: Vital Signs Temp 97.7 F 12/05/21 01:55 Pulse 77 12/05/21 01:55 Resp 16 12/05/21 01:55 BP 84/52 12/05/21 01:55 Pulse Ox 98 12/05/21 01:55 FiO2 Intake & Output 12/04/21 12/05/21 12/05/21 18:59 06:59 18:59 Intake Total 229 Balance 229 Intake: Oral 229 Other: # Voids 1 - Exam GENERAL: The patient is lying in bed and is not in acute distress. NEUROLOGICAL: Higher mental function: The patient is awake, alert, oriented to self, place and time. Patient is following commands. No aphasia and no neglect. Cranial nerves: The pupils are round, equal and reactive to light and accommodation. Visual jackson are full to confrontation throughout. Extraocular movement is intact no nystagmus is noted. Facial sensation is normal to touch throughout. The facial strength is normal throughout. Hearing is normal bilaterally to hand rub. Tongue is midline and moved [id number] without any difficulty. No dysarthria is noted. Shoulder shrug is normal bilaterally. Motor: The strength is 5 over 5 throughout. Normal tone and bulk. Cerebellum: Normal finger to nose bilaterally. Sensation: Sensation is normal to touch throughout. Reflexes (right/left): 2+ throughout. Plantars are downgoing bilaterally. SOME OF THE WORK-UP DURING THIS HOSPITAL VISIT CONSISTED OF: Routine EEG on 12/04/2021 is normal. There is no focal slowing, epileptiform discharges or seizure on the EEG. CT of the head is reported as no acute intracranial abnormality seen. Mild chronic maxillary and was sinus disease. I personally reviewed the CT of the head and I agree with the report. - Labs CBC & Chem 7: 12/04/21 06:44 12/04/21 06:44 Assessment and Plan Assessment: * Seizure-like activity and is reporting at least 14 seizure in a day at least. Patient had a CT of the head and a routine EEG which were normal. All her labs were within normal limits. I cannot rule true epileptic in nature since outs since the patient is confused during these episodes and is hypotensive. It is a possibility that she has a small focus that is not being picked-up on routine EEG.---currently feeling better. * Seizure-like activity for last 1 year. She had MRI Brain (08/2021) and had a 3 hour EEG by her outpatient neurologist was told was normal Plan: Continue her home dose of Keppra 1 g twice a day. I started her on Vimpat 50mg bid during this hospital visit. Highly Recommend epilepsy monitoring unit as outpatient to capture these episodes and detect whether all her episodes are ture epileptic in nature vs nonepileptiic vs combination of both. I notified her that this needs to be coordinated by her neurologist as outpatient. Recommend MRI Brain w/ as outpatient (she had MRI Brain w/o in 08/2021 and was told normal). Consulted psychiatry team since has stressor but denies suicidal or homicidal thoughts or plans. I spoke with them and they stated outpatient psychiatry management. Therefore cancelled consult. Patient was notified because of her seizure-like activities to avoid driving for 6 month, avoid heights, avoid using heavy machinery and avoid swimming unassisted. Patient to follow-up with her neurologist (Dr. Dominique's team) within 1-2 weeks. Plan discussed with the patient and her nurse. Since patient is feeling much better this morning, she is clear for discharge from neurological perspective. Zain Nava M.D. Neuro-hospitalist Time with Patient: Less than 30
[2021-12-05 08:30] VITALS: PULSE 61; TEMP 97.9
[2021-12-05 11:48] VITALS: BP 105/68
--- NOTE | 2021-12-05 17:11 | P.DS ---
Providers Date of admission: 12/03/21 21:39 Expected date of discharge: 12/05/21 Attending physician: Luis F Awad Consults: 12/03/21 21:44 Consult Physician Routine Consulting Provider: Zain Nava Consult Reason/Comments: sz Do you want consulting provider notified?: Yes Primary care physician: [facility] Hospital Course: Chief Complaint: Recurrent seizures This is a 26-year-old patient, follows with Dr. Rivers. Patient first had a seizure when she was . Subsequently she's had recurrent seizures. Patient follows with neurology spine locally in town with Dr. Aquino team. On Keppra thousand milligrams twice a day. In the process of getting vagal nerve stimulator. Patient is brought to the ER following recurrent seizures at least about over 10. Described as tonic-clonic. When I saw the patient this morning patient lethargic but able to answer questions. No fever no chills. Neurology was consulted. Neuro checks. Patient has been taking her medications. December 05: Vimpat 50 mg twice a day added by neurology. Cleared for discharge. Patient's been ambulating. Eating well. Discussed with patient. Follow with a neurologist. Seizures precautions discussed. Past medical history to include: Seizure disorder, acute lymphoblastic leukemia at age of 4 years. Anxiety depression. Social history: Not employed. Lives with her uncle and aunt. No alcohol no smoking or recreational drugs. Family history: Cancer Physical examination: VITAL SIGNS: 97.9, 61, 16, 10 5 x 68, 99% room air GENERAL: Laying in bed, awake, comfortable EYES: Pupils equal. Conjunctiva normal. HEENT: External appearance of nose and ears normal, oral cavity grossly normal. NECK: JVD not raised; masses not palpable. HEART: First and second heart sounds are normal; no edema. LUNGS: Respiratory rate normal; clear to auscultation. ABDOMEN: Soft, nontender, liver spleen not palpable, no masses palpable. PSYCH: Answering questions appropriately INVESTIGATIONS, reviewed in the clinical context: Urinates G: Not detected White count 8.4 hemoglobin 13.8 platelets 197 potassium 4.2 creatinine 0.66 Urine drug screen positive for: Benzodiazepines EKG tracing personally reviewed by me: Normal sinus rhythm Computed tomography scan of the brain: Unremarkable Assessment and plan: -Recurrent seizures. Patient does follow with neurology spine locally in town. Awaiting vagal nerve stimulator-as outpatient. Keppra thousand milligrams twice a day. Vimpat 50 mg twice a day added. -Obesity BMI 30.6 Weight loss measures -Depression, anxiety Seroquel 200 mg daily at bedtime Disposition: Home Patient Condition at Discharge: Fair Plan - Discharge Summary Discharge Rx Participant: No New Discharge Prescriptions: New Lacosamide [Vimpat] 50 mg PO BID #60 tab Continue levETIRAcetam [Keppra] 1,000 mg PO Q12HR QUEtiapine [SEROquel] 200 mg PO HS Discharge Medication List QUEtiapine [SEROquel] 200 mg PO HS 12/03/21 [History] levETIRAcetam [Keppra] 1,000 mg PO Q12HR 12/03/21 [History] Lacosamide [Vimpat] 50 mg PO BID #60 tab 12/05/21 [Rx] Follow up Appointment(s)/Referral(s): Jeremiah Angeles NPC [Family Provider] - 1-2 Days (Office closed please call to make your follow up appointment. Thank you!) Sade Dominique MD [Medical Doctor] - 3 Days (Office is closed for the weekend. Please call on tuesday to schedule your follow up appointment. Thank you!) Patient Instructions/Handouts: Seizure/Epilepsy Discharge Instructions & Follow-Up Discharge Disposition: HOME SELF-CARE
== END 2021-12-05 13:16 | disposition home or self-care (01) | DRG 101 ==
LOC: EC 21:07 → EEVIPCON 21:39 → 4SSUR 21:39
PROVIDERS: ADMIT Hospitalist; ATTEND Hospitalist
DX: G40.911 Epilepsy, unspecified, intractable, with status epilepticus (principal); E66.9 Obesity, unspecified; Z68.30 Body mass index [BMI] 30.0-30.9, adult; F32.A Depression, unspecified; F41.9 Anxiety disorder, unspecified; Z79.899 Other long term (current) drug therapy; Z85.6 Personal history of leukemia; Z56.0 Unemployment, unspecified; Z28.21 Immunization not carried out because of patient refusal; Z88.0 Allergy status to penicillin; Z88.2 Allergy status to sulfonamides
CPT/HCPCS: 70450; 80048; 80053; 80143; 80179; 80306; 80320; 81025; 83735; 85025; 93005; 95819; 96374; 99285

== ENCOUNTER 2021-12-25 01:28 | Observation (INO) | payer OTHER ==
[2021-12-25] MEDS ORDERED: KETOROLAC 15 MG/ML 1 ML VIAL IVP STA (01:51)
[2021-12-25] MEDS ORDERED: SODIUM CHLORIDE 0.9% 1,000 ML IV STA (01:51)
[2021-12-25] MEDS ORDERED: ONDANSETRON 4 MG/2 ML VIAL IVP STA (01:51)
[2021-12-25] MEDS ORDERED: LORazepam 2 MG/ML INJ IV STA ×2 (01:51→02:46)
--- NOTE | 2021-12-25 02:05 | ED ---
Seizure HPI - General Chief Complaint: Seizure Stated Complaint: Seizure Time Seen by Provider: 12/25/21 01:29 Source: patient, RN notes reviewed Mode of arrival: ambulatory Limitations: no limitations - History of Present Illness Initial Comments: This is a 26-year-old female who presents to the emergency department for multiple seizures. EMS brought her from home. States that she had 7 seizures today. Patient has a known history of epilepsy and has been admitted several times for status epilepticus. Each seizure lasted approximately 3 minutes, states that she had a minor recovery between each seizure before having the next one. The only symptom she gets before having a possible seizure is a headache. States that she currently has a headache and is concerned that she may have another seizure. Also notes nausea. Denies hitting her head with the seizures. The seizures were witnessed by her fianc and his aunt. Denies any fevers, chills, sore throat, cough, dyspnea, chest pain, palpitations, abdominal pain, vomiting, diarrhea, or back pain. MD Complaint: seizure Description of Episode: loss of consciousness, tonic-clonic movement Duration of Episode: 3 -: minutes(s) Witnessed: yes - by other (family) Trauma: No Seizure History: known seizure disorder Place: home - Related Data Home Medications Medication Instructions Recorded Confirmed QUEtiapine [SEROquel] 200 mg PO HS 12/03/21 12/03/21 levETIRAcetam [Keppra] 1,000 mg PO Q12HR 12/03/21 12/03/21 Previous Rx's Medication Instructions Recorded Lacosamide [Vimpat] 50 mg PO BID #60 tab 12/05/21 Allergies Allergy/AdvReac Type Severity Reaction Status Date / Time sulfamethoxazole Allergy Rash/Hives Verified 12/25/21 01:41 [From Bactrim] trimethoprim [From Bactrim] Allergy Rash/Hives Verified 12/25/21 01:41 amoxicillin AdvReac Rash/Hives Verified 12/25/21 01:41 bupropion [From Wellbutrin] AdvReac VIOLENT Verified 12/25/21 01:41 cephalexin [From Keflex] AdvReac Rash/Hives Verified 12/25/21 01:41 latex AdvReac Unknown Verified 12/25/21 01:41 Review of Systems ROS Statement: Those systems with pertinent positive or pertinent negative responses have been documented in the HPI. ROS Other: All systems not noted in ROS Statement are negative. Past Medical History Past Medical History: Cancer, Seizure Disorder Additional Past Medical History / Comment(s): States hx back pain. Hx ALL (Acute Lymphoblastic Leukemia at 4yrs of age) History of Any Multi-Drug Resistant Organisms: None Reported Past Surgical History: Section, Cholecystectomy, Tubal Ligation Additional Past Surgical History / Comment(s): Port-a-cath insertion for chemo Past Anesthesia/Blood Transfusion Reactions: No Reported Reaction Past Psychological History: Anxiety, Depression Smoking Status: Never smoker Past Alcohol Use History: None Reported Past Drug Use History: None Reported - Past Family History Mother Family Medical History: Cancer General Exam Limitations: no limitations General appearance: alert, in no apparent distress Head exam: Present: atraumatic, normocephalic, normal inspection Respiratory exam: Present: normal lung sounds bilaterally. Absent: respiratory distress, wheezes, rales, rhonchi, stridor Cardiovascular Exam: Present: regular rate, normal rhythm, normal heart sounds. Absent: systolic murmur, diastolic murmur, rubs, gallop, clicks Neurological exam: Present: alert, oriented X3, CN II-XII intact Psychiatric exam: Present: normal affect, normal mood Skin exam: Present: warm, dry, intact, normal color. Absent: rash Course Vital Signs 12/25/21 12/25/21 12/25/21 01:41 02:32 03:11 Temperature 97.4 F L Pulse Rate 89 70 87 Respiratory 18 17 15 Rate Blood Pressure 114/65 112/65 99/58 O2 Sat by Pulse 95 97 Oximetry Medical Decision Making - Medical Decision Making This is a 26-year-old female who presents to the emergency department for multiple seizures. Lab work was nonactionable. The patient told her nurse that she had an additional 4-5 seizures while in the room. She was conscious during these episodes and talking to her while they were occurring. She has received a total of 3 mg of IV Ativan and states that she is continuing to have these episodes. It appears that she may be having a combination of true seizures and pseudoseizures. Will admit patient for observation and neurology consult to see if medication adjustments need to be made. Keppra level pending at the time of admission. This case was discussed in detail with the attending ED physician. Presentation, findings, and treatment plan discussed in detail as well. - Lab Data Result diagrams: 12/25/21 02:17 12/25/21 02:17 Lab Results 12/25/21 12/25/21 12/25/21 Range/Units 02:17 02:17 02:17 WBC 10.9 H (3.8-10.6) k/uL RBC 4.80 (3.80-5.40) m/uL Hgb 14.5 (11.4-16.0) gm/dL Hct 42.7 (34.0-46.0) % MCV 89.1 (80.0-100.0) fL MCH 30.2 (25.0-35.0) pg MCHC 33.9 (31.0-37.0) g/dL RDW 12.8 (11.5-15.5) % Plt Count 238 (150-450) k/uL MPV 7.8 Neutrophils % 59 % Lymphocytes % 30 % Monocytes % 6 % Eosinophils % 3 % Basophils % 1 % Neutrophils # 6.4 (1.3-7.7) k/uL Lymphocytes # 3.3 (1.0-4.8) k/uL Monocytes # 0.6 (0-1.0) k/uL Eosinophils # 0.3 (0-0.7) k/uL Basophils # 0.1 (0-0.2) k/uL Sodium 136 L (137-145) mmol/L Potassium 4.1 (3.5-5.1) mmol/L Chloride 107 (98-107) mmol/L Carbon Dioxide 20 L (22-30) mmol/L Anion Gap 9 mmol/L BUN 17 (7-17) mg/dL Creatinine 0.61 (0.52-1.04) mg/dL Est GFR (CKD-EPI)AfAm >90 (>60 ml/min/1.73 sqM) Est GFR (CKD-EPI)NonAf >90 (>60 ml/min/1.73 sqM) Glucose 102 H (74-99) mg/dL Uric Acid 5.2 (3.7-7.4) mg/dL Calcium 9.0 (8.4-10.2) mg/dL Phosphorus 3.4 (2.5-4.5) mg/dL Magnesium 1.8 (1.6-2.3) mg/dL Total Bilirubin 0.4 (0.2-1.3) mg/dL AST 25 (14-36) U/L ALT 18 (4-34) U/L Alkaline Phosphatase 73 (38-126) U/L Creatine Kinase 49 (30-135) U/L Total Protein 7.4 (6.3-8.2) g/dL Albumin 4.4 (3.5-5.0) g/dL HCG, Qual Not Detected Urine Color Light Yellow Urine Appearance Clear (Clear) Urine pH 7.5 (5.0-8.0) Ur Specific [place] 1.013 (1.001-1.035) Urine Protein Negative (Negative) Urine Glucose (UA) Negative (Negative) Urine Ketones Negative (Negative) Urine Blood Negative (Negative) Urine Nitrite Negative (Negative) Urine Bilirubin Negative (Negative) Urine Urobilinogen <2.0 (<2.0) mg/dL Ur Leukocyte Esterase Negative (Negative) - EKG Data EKG Comments: Sinus rhythm. Ventricular rate 88 bpm, CA interval 136 ms, QRS duration 99 ms, QTC 413 ms. Disposition Clinical Impression: Recurrent seizures Disposition: ADMITTED IP TO [facility] Referrals: None,Stated [Primary Care Provider] - 1-2 days
[2021-12-25 02:33] LABS: Basophils # (A) 0.1 k/uL (0-0.2); Basophils % (A) 1 %; Eosinophils # (A) 0.3 k/uL (0-0.7); Eosinophils % (A) 3 %; HCT 42.7 % (34.0-46.0); HGB 14.5 gm/dL (11.4-16.0); Lymphocytes # (A) 3.3 k/uL (1.0-4.8); Lymphocytes % (A) 30 %; MCH 30.2 pg (25.0-35.0); MCHC 33.9 g/dL (31.0-37.0); MCV 89.1 fL (80.0-100.0); Mean Platelet Volume 7.8; Monocytes # (A) 0.6 k/uL (0-1.0); Monocytes % (A) 6 %; Neutrophils # (A) 6.4 k/uL (1.3-7.7); Neutrophils % (A) 59 %; Platelet Count 238 k/uL (150-450); RDW 12.8 % (11.5-15.5); WBC 10.9 k/uL (3.8-10.6)
[2021-12-25 02:58] LABS: ALT 18 U/L (4-34); AST 25 U/L (14-36); African American GFR (CKD) >90 (>60 ml/min/1.73 sqM); Albumin 4.4 g/dL (3.5-5.0); Alkaline Phosphatase 73 U/L (38-126); Anion Gap 9 mmol/L; Blood Urea Nitrogen 17 mg/dL (7-17); Carbon Dioxide 20 mmol/L (22-30); Chloride 107 mmol/L (98-107); Creatine Kinase 49 U/L (30-135); Glucose 102 mg/dL (74-99); Magnesium 1.8 mg/dL (1.6-2.3); Non-African American GFR(CKD) >90 (>60 ml/min/1.73 sqM); Phosphorus 3.4 mg/dL (2.5-4.5); Potassium 4.1 mmol/L (3.5-5.1); Sodium 136 mmol/L (137-145); Total Bilirubin 0.4 mg/dL (0.2-1.3); Total Protein 7.4 g/dL (6.3-8.2); Uric Acid 5.2 mg/dL (3.7-7.4)
[2021-12-25 03:00] LABS: HCG,Qualitative Serum Not Detected
[2021-12-25 03:57] LABS: Appearance,Urine Clear (Clear); Bilirubin,Urine Negative (Negative); Blood,Urine Negative (Negative); Color,Urine Light Yellow; Glucose,Urine (UA) Negative (Negative); Ketones,Urine Negative (Negative); Leukocyte Esterase,Urine Negative (Negative); Nitrite,Urine Negative (Negative); PH, Urine 7.5 (5.0-8.0); Protein,Urine Negative (Negative); Specific Gravity,Urine 1.013 (1.001-1.035); Urobilinogen,Urine <2.0 mg/dL (<2.0)
[2021-12-25] MEDS ORDERED: ONDANSETRON 4 MG/2 ML VIAL IVP PRN (04:30)
[2021-12-25] MEDS ORDERED: NALOXONE 0.4 MG/ML 1 ML VIAL IV PRN (04:30)
[2021-12-25] MEDS ORDERED: IBUPROFEN 400 MG TAB PO PRN (04:30)
[2021-12-25] MEDS ORDERED: ACETAMINOPHEN TAB 325 MG TAB PO PRN (04:30)
[2021-12-25] MEDS ORDERED: HYDROcodone/APAP 5-325MG 1 EACH TAB PO PRN (04:30)
[2021-12-25] MEDS ORDERED: KETOROLAC 15 MG/ML 1 ML VIAL IVP PRN (04:32)
[2021-12-25] MEDS ORDERED: LACOSAMIDE 50 MG TABLET PO SCH (09:00)
--- NOTE | 2021-12-25 12:32 | P.HPIM ---
History of Present Illness H&P Date: 12/25/21 Chief Complaint: Recurrent seizure Patient is a 26-year-old female who presents to the ED with multiple seizures. Patient was recently admitted to our facility about 2 weeks ago and was worked up for recurrent seizures. Neurology started the patient on Vimpat. Per neurology patient may be having pseudoseizures. Patient was instructed to follow up outpatient with the psychiatrist. Patient states that after she was discharged within 3 days her seizures started to worsen. She states that she was compliant with her medications. Patient is currently somnolent and kept drifting off to sleep. Per ED note patient told her nurse that she had an additional 4-5 seizures while in the ED room. She was conscious during these episodes and talking to her while they were occurring. Review of Systems 10 ROS reviewed and are negative except as noted in HPI Past Medical History Past Medical History: Cancer, Seizure Disorder Additional Past Medical History / Comment(s): States hx back pain. Hx ALL (Acute Lymphoblastic Leukemia at 4yrs of age) History of Any Multi-Drug Resistant Organisms: None Reported Past Surgical History: Section, Cholecystectomy, Tubal Ligation Additional Past Surgical History / Comment(s): Port-a-cath insertion for chemo Past Anesthesia/Blood Transfusion Reactions: No Reported Reaction Past Psychological History: Anxiety, Depression Smoking Status: Never smoker Past Alcohol Use History: None Reported Past Drug Use History: None Reported - Past Family History Mother Family Medical History: Cancer Medications and Allergies Home Medications Medication Instructions Recorded Confirmed Type QUEtiapine [SEROquel] 200 mg PO HS 12/03/21 12/25/21 History Lacosamide [Vimpat] 50 mg PO BID #60 tab 12/05/21 12/25/21 Rx EPINEPHrine (Auto Inject) [Epipen] 0.3 mg IM ONCE PRN 12/25/21 12/25/21 History Valtoco 10mg [place] 1 spray NASAL ONCE PRN 12/25/21 12/25/21 History levETIRAcetam [Keppra] 1,500 mg PO BID 12/25/21 12/25/21 History Allergies Allergy/AdvReac Type Severity Reaction Status Date / Time sulfamethoxazole Allergy Rash/Hives Verified 12/25/21 08:22 [From Bactrim] trimethoprim [From Bactrim] Allergy Rash/Hives Verified 12/25/21 08:22 amoxicillin AdvReac Rash/Hives Verified 12/25/21 08:22 bupropion [From Wellbutrin] AdvReac VIOLENT Verified 12/25/21 08:22 cephalexin [From Keflex] AdvReac Rash/Hives Verified 12/25/21 08:22 latex AdvReac Unknown Verified 12/25/21 08:22 Physical Exam Osteopathic Statement: *. No significant issues noted on an osteopathic structural exam other than those noted in the History and Physical/Consult. Vitals: Vital Signs Temp Pulse Pulse Resp BP BP Pulse Ox 12/25/21 08:00 98.2 F 69 16 99/64 98 12/25/21 05:25 97.6 F 73 20 89/53 96 12/25/21 03:11 87 15 99/58 12/25/21 02:32 70 17 112/65 97 12/25/21 01:41 97.4 F L 89 18 114/65 95 Intake and Output 12/24/21 12/25/21 12/25/21 22:59 06:59 14:59 Other: Weight 79.379 kg General: [Alert and oriented, well nourished, no acute distress]. Eye: [PERRL, EOMI, normal conjunctiva]. HENT: [Normocephalic, clear tympanic membranes, normal hearing, moist oral mucosa, no scleral icterus, no sinus tenderness]. Neck: [Supple, non-tender, no carotid bruits, no JVD, no lymphadenopathy]. Lungs: [Clear to auscultation and percussion, non-labored respiration]. Heart: [Normal rate, regular rhythm, no murmur, gallop or edema]. Abdomen: [Soft, non-tender, non-distended, normal bowel sounds, no masses]. Obese Musculoskeletal: [Normal range of motion and strength, no tenderness or swelling]. Skin: [Skin is warm, dry and pink, no rashes or lesions]. Neurologic: [Awake, alert, and oriented X3, CN II-XII intact]. Psychiatric: [Cooperative, appropriate mood and affect]. 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
--- NOTE | 2021-12-25 14:25 | P.CN ---
Psychiatric Consult - . Consult date: 12/25/21 Consult:: 12/25/21 14:24 IDENTIFYING DATA: This patient is a , unemployed, 26-year-old female with a significant history of borderline personality disorder presenting to the hospital for seizures. HISTORY OF PRESENT ILLNESS: The patient presented to the hospital on 12/25/2021, brought in for recurrent seizures. 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 Upon assessment on the medical floor, the patient is not endorsing any significant psychiatric pathology at this time. She is denying any suicidal or homicidal ideation, intention, and/or plan. She denies any prior attempts at suicide. She reports no auditory and spatial is denying any paranoia or other delusions. When overtly as if she is experiencing any significant life stressors, the patient denies this however, the patient does report that she recently just broke up with her boyfriend. She reports that she has been with this boyfriend for 3 months and that they have continued trust issues. When informed that this may be a precipitating factor in regards to her seizures, the patient appears to be somewhat hesitant to accept this reality. This provider just provided the patient with psychoeducation on pseudoseizures and the role that stress and underlying psychiatric pathology may play. The patient is otherwise not reporting any significant substance use that may contribute to seizure disorder. She also reports that she does not experience any tongue biting, enuresis, or truly postictal states. The patient maintains that she also has seizures when no one else is present or observing. PAST PSYCHIATRIC HISTORY: Patient has a history of borderline personality disorder. The patient reports that she has been on a regimen of Seroquel. Patient reports that she was last hospitalized psychiatrically when she was 10 years old. Patient currently goes to [facility] in [place] and undergoes dialectical behavioral therapy for borderline personality disorder. Patient denies any history of suicide attempts in the past. PAST MEDICAL HISTORY: Past Medical History: Cancer, Seizure Disorder Additional Past Medical History / Comment(s): States hx back pain. Hx ALL (Acute Lymphoblastic Leukemia at 4yrs of age) History of Any Multi-Drug Resistant Organisms: None Reported Past Surgical History: Section, Cholecystectomy, Tubal Ligation Additional Past Surgical History / Comment(s): Port-a-cath insertion for chemo Past Anesthesia/Blood Transfusion Reactions: No Reported Reaction Past Psychological History: Anxiety, Depression Smoking Status: Never smoker Past Alcohol Use History: None Reported Past Drug Use History: None Reported ALLERGIES: as per EMR. CHEMICAL DEPENDENCY HISTORY: Patient denies any alcohol, marijuana, tobacco, or illicit drug use. FAMILY PSYCHIATRIC/SUBSTANCE USE HISTORY: Denies SOCIAL HISTORY: Patient states that she is . She is however dating and recently broke up with her boyfriend of 3 months. However, the patient states that this is not a stressful event for her as she was upset with his trust issues. MENTAL STATUS EXAM: General Appearance: Patient appears to be stated age is alert, pleasant, and cooperative. Patient appears to have fair hygiene and grooming wearing hospital gown with fair eye contact. Behavior: Patient is calmly lying in bed without any agitated behavior. Speech: Patient's speech is fluent and nonpressured. Mood/Affect: Patient reports their mood is "doing fine", affect is congruent and nonchalant Suicidality/Homicidality: Patient denies having any suicidal or homicidal ideation intent or plan. Perceptions: Patient denies any visual hallucinations and denies any auditory hallucinations Though content/process: There is no evidence of any delusional thought content and thought process is linear and goal-directed. Memory and concentration: AOX3, grossly intact for the purposes of this session. Can spell "WORLD" backwards Judgment and insight: Fair IMPRESSIONS: Borderline personality disorder Non-Epileptiform seizure disorder PLAN: -At this time patient DOES NOT meet criteria for inpatient psychiatric admission. The patient is not presenting with any acute psychiatric pathology that would warrant inpatient psychiatric hospitalization, she is not presenting with any imminent risk of harm to self or others and is not overtly psychotic to the point of disability. -The patient was counseled at length on pseudoseizures and the role that psychiatric illness and psychological stressors may contribute to their precipitation. Patient however appears to take this information in stride. -Would recommend the following medication changes/additions: No medication recommendations are made at this time. -Psychiatry will sign off at this point, please contact with any questions. 12/25/21 14:25
[2021-12-25] MEDS: LACOSAMIDE 50 MG TABLET PO SCH (20:15)
[2021-12-25] MEDS ORDERED: QUEtiapine 200 MG TAB PO SCH (21:00)
--- NOTE | 2021-12-26 06:30 | P.CNNES ---
History of Present Illness Consult date: 12/25/21 Requesting physician: Adwoa Baird Reason for Consult: Recurrent seizures, possible medication adjustments History of Present Illness: Patient is a 26-year-old female came to the hospital by ambulance early this morning at 1:28 AM. EMS she did not available in the chart. Patient has history of seizure disorder for the last 1 year. She has recurrent seizure, several times a day. Patient states that her seizure medications have stopped working. She is scheduled to undergo VNS placement in [place] initiated through her primary neurologist Estrella Montiel with Dr. Rutherford office. Patient states that she has been evaluated in the ER 4 times in the last 2 months. She came to [facility] on 11/21/2021, then went to [facility] on 11/28/2021, then came back to [facility] on 12/03/2021 and now she was readmitted this morning 12/25/2021. Patient was on Keppra 1500 mg twice a day. Patient was seen by Dr. Zain Nava on 12/04/2021, who initiated Vimpat 50 mg twice a day. Patient states that was working for a short while but then stopped working. Patient states that she has been diagnosed with epileptic and nonepileptic seizures by her primary neurologist Estrella Montiel. She has not undergone video EEG monitoring at a comprehensive epilepsy center. She is just going for VNS surgery. Patient says that she gets 2 types of seizures, sometimes they are zoning out seizure, which lasted for <2 minutes. And sometime she is having grand mal seizures, in which she is like "fish out of water", which lasts for about 5-8 minutes. She says that she does not remember after any of those seizures. Patient states that she has a headache before her seizure, and if the headache gets worse after the seizure, she will have a second one. Patient denied any aura consisting of funny taste or smell prior to the seizure, however later on she mentioned that she does get metallic taste before her grand mal seizure. She claims that she does have lost control of urine in the past. She says that she bit the inside of her cheek, although I looked at her cheek, appeared very clean, with no evidence of oral trauma. Vital signs arrival blood pressure 114/65% 18 and temperature 97.4. Blood tests shows WBC 10.9 hemoglobin 14.5, platelets 238. Sodium 136 potassium 4.1, renal functions normal. Hepatic panel normal. UA negative. Patient was recently admitted to the hospital for recurrent seizure-like activity, reporting at least 14 seizures a day. Patient had an EEG on 12/04/2021, which is normal. No focal slowing, epileptiform discharges or seizures were recorded. Patient reportedly had normal brain MRI in August 2021 and 3 hours EEG by her outpatient neurologist which was normal. Patient was continued on Keppra 1 g twice a day and Dr. Nava started her on Vimpat 50 mg twice a day. Patient was recommended to follow up with epilepsy monitoring unit as outpatient to capture these episodes and detect whether on her episodes are true epileptic in nature versus nonepileptic versus combination of both. Patient has previously failed Dilantin and Depakote. She follows up with Dr. Rutherford. She had to 3 hours EEG that was reportedly normal. Patient currently is taking Vimpat 50 mg twice a day, Keppra 1500 mg twice a day. Also on Seroquel 200 mg at bedtime. Review of Systems All 14 points of review systems reviewed, unremarkable except as mentioned in HPI. Past Medical History Past Medical History: Cancer, Seizure Disorder Additional Past Medical History / Comment(s): States hx back pain. Hx ALL (Acute Lymphoblastic Leukemia at 4yrs of age) History of Any Multi-Drug Resistant Organisms: None Reported Past Surgical History: Section, Cholecystectomy, Tubal Ligation Additional Past Surgical History / Comment(s): Port-a-cath insertion for chemo Past Anesthesia/Blood Transfusion Reactions: No Reported Reaction Past Psychological History: Anxiety, Depression Smoking Status: Never smoker Past Alcohol Use History: None Reported Past Drug Use History: None Reported - Past Family History Mother Family Medical History: Cancer Medications and Allergies Home Medications Medication Instructions Recorded Confirmed Type QUEtiapine [SEROquel] 200 mg PO HS 12/03/21 12/25/21 History Lacosamide [Vimpat] 50 mg PO BID #60 tab 12/05/21 12/25/21 Rx EPINEPHrine (Auto Inject) [Epipen] 0.3 mg IM ONCE PRN 12/25/21 12/25/21 History Valtoco 10mg [place] 1 spray NASAL ONCE PRN 12/25/21 12/25/21 History levETIRAcetam [Keppra] 1,500 mg PO BID 12/25/21 12/25/21 History Allergies Allergy/AdvReac Type Severity Reaction Status Date / Time sulfamethoxazole Allergy Rash/Hives Verified 12/25/21 08:22 [From Bactrim] trimethoprim [From Bactrim] Allergy Rash/Hives Verified 12/25/21 08:22 amoxicillin AdvReac Rash/Hives Verified 12/25/21 08:22 bupropion [From Wellbutrin] AdvReac VIOLENT Verified 12/25/21 08:22 cephalexin [From Keflex] AdvReac Rash/Hives Verified 12/25/21 08:22 latex AdvReac Unknown Verified 12/25/21 08:22 Physical Examination - Vital Signs Vital Signs: Vital Signs Temp Pulse Pulse Resp BP BP Pulse Ox 12/25/21 08:00 98.2 F 69 16 99/64 98 12/25/21 05:25 97.6 F 73 20 89/53 96 12/25/21 03:11 87 15 99/58 12/25/21 02:32 70 17 112/65 97 12/25/21 01:41 97.4 F L 89 18 114/65 95 Intake and Output 12/24/21 12/25/21 12/25/21 22:59 06:59 14:59 Other: Weight 79.379 kg Patient is a young female, in no acute distress. Patient is alert awake oriented to time place and person. Speech and language functions are normal. Attention, concentration and fund of knowledge is adequate. On cranial examination, pupils are round and reacting to light, visual jackson are full on confrontation, extraocular muscles are intact with no nystagmus. Face is symmetric, tongue protrudes to the midline. Palatal elevation and sensation normal, hearing and shoulder shrug normal, facial sensation normal. Shoulder shrug normal. On muscle strength testing, there is no pronator drift and the strength is normal in arms and legs distally and proximally. Deep tendon reflexes are trace in the upper limbs, trace at the knees, 1+ ankles and plantars downgoing. Sensory to touch is equal with no neglect. Cerebellar function showed no ataxia for [id number] testing. No dysdiadochokinesia. Tone and bulk of muscles normal. Gait normal. On general examination, there is no carotid bruit or murmur, S1-S2 audible. Abdomen is soft nontender. Chest is clear. Peripheral pulses are present. No edema. Results - Laboratory Findings CBC and BMP: 12/25/21 02:17 12/25/21 02:17 Abnormal Lab Findings: Abnormal Labs 12/25/21 12/25/21 02:17 02:17 WBC 10.9 H Sodium 136 L Carbon Dioxide 20 L Glucose 102 H Assessment and Plan Assessment: * Seizure disorder. Patient claims that she has both epileptic and nonepileptic seizures. Patient had a normal 3 hours prolonged EEG performed as an outpatient, and a normal routine EEG at [facility]. Patient experiencing 3-4 seizures per day (previously was getting up to 14 seizures per day). Needs further evaluation at comprehensive epilepsy monitoring unit for further evaluation of her seizure disorder. Plan: * Continue Keppra 1500 mg twice a day * Increase Vimpat to 100 mg twice a day from today. After one week, increase Vimpat to 150 mg twice a day. (If needed, the dose can be further increased to 200 mg twice a day). * Patient recommended to be evaluated at a comprehensive epilepsy monitoring unit for prolonged EEG monitoring to confirm epileptic and/or nonepileptic seizures. * Psychiatry input appreciated. * Neurologically clear for discharge. Recommended patient to follow up with her primary neurologist for optimizing dose of Vimpat and also for referral to comprehensive epilepsy center. * Thank you for the consult.
[2021-12-26 07:54] VITALS: RESP 16
[2021-12-26] MEDS: LACOSAMIDE 50 MG TABLET PO SCH (09:49)
--- NOTE | 2021-12-26 11:52 | P.DS ---
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 Patient was recently admitted to our facility about 2 weeks ago and was worked up for recurrent seizures. Neurology started the patient on Vimpat. Per neurology patient may be having pseudoseizures. Patient was instructed to follow up outpatient with the psychiatrist. Patient states that after she was discharged within 3 days her seizures started to worsen. She states that she was compliant with her medications. Per ED note patient told her nurse that she had an additional 4-5 seizures while in the ED room. She was conscious during these episodes and talking to her while they were occurring. During hospitalization patient did not have any further episodes of seizures that were reported by the nurse and patient also did not report any episodes. Patient was seen by neurology who recommended to follow with her primary neurologist to set up prolonged EEG. Neurology did increase her Vimpat 2 100 mg twice a day 7 days and then 150 mg twice a day. Patient also seen by psychiatry said to follow-up with her psychiatrist outpatient. I discussed this with the patient. Patient stated that she'll follow with her neurologist and psychiatry. At this time we do not have any further workup that we can do at our hospital. Patient needs a prolonged EEG that we do not have available while patient is inpatient. Patient seen and examined at bedside.[] Vital signs reviewed and stable. General: [non toxic], [no distress], [appears at stated age] Derm: [warm], [dry] Head: [atraumatic], [normocephalic], [symmetric] Eyes: [EOMI], [no lid lag], [anicteric sclera] Mouth: [no lip lesion], [mucus membranes moist] Cardiovascular: [S1S2 reg], [no murmur], [positive posterior tibial pulse bilateral], Lungs: [CTA bilateral], [no rhonchi, no rales] , [no accessory muscle use] Abdominal: [soft], [ nontender to palpation], [no guarding], [no appreciable organomegaly] Ext: [no gross muscle atrophy], [no edema], [no contractures] Neuro: [ CN II-XI grossly intact], [no focal neuro deficits] Psych: [Alert], [oriented], [appropriate affect] A total of [33] minutes of time were spent preparing this complex discharge summary . Patient Condition at Discharge: Good Plan - Discharge Summary Discharge Rx Participant: No New Discharge Prescriptions: Continue QUEtiapine [SEROquel] 200 mg PO HS Valtoco 10mg [place] 1 spray NASAL ONCE PRN PRN Reason: Migraine Headache Lacosamide [Vimpat] 50 mg PO BID #154 tab EPINEPHrine (Auto Inject) [Epipen] 0.3 mg IM ONCE PRN PRN Reason: Anaphylaxis levETIRAcetam [Keppra] 1,500 mg PO BID Discharge Medication List QUEtiapine [SEROquel] 200 mg PO HS 12/03/21 [History] EPINEPHrine (Auto Inject) [Epipen] 0.3 mg IM ONCE PRN 12/25/21 [History] Valtoco 10mg [place] 1 spray NASAL ONCE PRN 12/25/21 [History] levETIRAcetam [Keppra] 1,500 mg PO BID 12/25/21 [History] Lacosamide [Vimpat] 50 mg PO BID #154 tab 12/26/21 [Rx] Follow up Appointment(s)/Referral(s): None,Stated [Primary Care Provider] - 1-2 days Discharge Disposition: HOME SELF-CARE
[2021-12-26 14:31] VITALS: BP 112/64; PULSE 86; TEMP 98.6
== END 2021-12-26 14:56 | disposition home or self-care (01) ==
LOC: EC 01:28 → 4SSUR 04:30
PROVIDERS: ADMIT Internal Medicine; ATTEND Internal Medicine
DX: G40.909 Epilepsy, unspecified, not intractable, without status epilepticus (principal); F41.9 Anxiety disorder, unspecified; F32.A Depression, unspecified; E66.9 Obesity, unspecified; Z85.6 Personal history of leukemia; Z90.49 Acquired absence of other specified parts of digestive tract; Z80.9 Family history of malignant neoplasm, unspecified; Z79.899 Other long term (current) drug therapy; Z88.2 Allergy status to sulfonamides; Z91.040 Latex allergy status; Z32.02 Encounter for pregnancy test, result negative; Z68.30 Body mass index [BMI] 30.0-30.9, adult
CPT/HCPCS: 96376 ×2; 96374; 96375; 99285; 36415; 93005; 80053; 80177; 82550; 83735; 84100; 84550; 85025; 81003; 84703; G0378 ×2; J2060; J2405; J1885